=== PATIENT | male | born 1955 | race Caucasian/White ===

== ENCOUNTER 2017-10-02 00:52 | Emergency (ER) | payer MEDICARE, MEDICAID ==
[~2017-10-02] VITALS: Ht 185.4 cm; Wt 65.2 kg
[2017-10-02 01:14] VITALS: BP 132/75; PULSE 72; RESP 18; TEMP 97.7; O2SAT 96
== END 2017-10-02 03:10 | disposition left against medical advice (07) ==
LOC: NETRI 00:52
DX: R06.02 Shortness of breath (principal); Z53.21 Procedure and treatment not carried out due to patient leaving prior to being seen by health care provider
CPT/HCPCS: 99281